=== PATIENT | female | born 1970 | race Two or more races ===

== ENCOUNTER 2018-12-02 13:16 | Emergency (ER) | payer MEDICAID, OTHER ==
[~2018-12-02] VITALS: Ht 162.6 cm; Wt 77.1 kg
[~2018-12-02 13:16] MED LIST: ONDA4TAB11 PO; SULF-10 PO
--- NOTE | 2018-12-02 14:15 | NUR ---
PT BIB DAUGHTER C/O ABDOMINAL PAIN FOR 10 DAYS RADIATING TO LOWER BACK, PT IS AAOX4, NOT IN RESPIRATORY DISTRESS, HOOKED TO MONITOR, KEPT RESTED AND COMFORTABLE, WILL CONTINUE TO MONITOR.
--- NOTE | 2018-12-02 14:41 | NUR ---
SEEN AND EXAMINED BY
--- NOTE | 2018-12-02 14:50 | NUR ---
IV LINE ESTABLISHED BLOOD DRAWNED AND SENT TO LAB.
[2018-12-02 14:53] LABS: APPEARANCE,URINE Clear (CLEAR); BILIRUBIN,URINE Negative (NEGATIVE); BLOOD, URINE Moderate Ery/uL (NEGATIVE); COLOR,URINE Yellow (YELLOW); KETONES,URINE Negative (NEGATIVE); LEUKOCYTE ESTERASE ,URINE Negative (NEGATIVE); NITRITE, URINE Negative (NEGATIVE); PH,URINE 5.5 (5.0-8.0); PROTEIN,URINE Negative (NEGATIVE); UGLUCOSE Negative (NEGATIVE); UROBILINOGEN,URINE 0.2 EU/dL (0.2)
[2018-12-02 14:58] LABS: BASOPHILS # (AUTO) 0.1 /CMM (0.0-0.2); EOSINOPHILS % (AUTO) 3.2 % (0.0-6.0); HEMATOCRIT 28 % (33-45); HEMOGLOBIN 8.7 g/dL (11.5-14.8); LYMPHOCYTES # (AUTO) 1.8 /CMM (0.8-4.8); LYMPHOCYTES % (AUTO) 28.8 % (20.0-44.0); MEAN CORPUSCULAR HGB CONC 31 g/dl (31.0-36.0); MEAN CORPUSCULAR VOLUME 65 fL (82-100); MONOCYTES # (AUTO) 0.5 /CMM (0.1-1.30); MONOCYTES % (AUTO) 7.6 % (2.0-12.0); NEUTROPHILS # (AUTO) 3.7 /CMM (1.8-8.9); NEUTROPHILS % (AUTO) 58.4 % (43.0-81.0); PLATELET COUNT (AUTO) 352 /CMM (150-450); RED BLOOD CELL COUNT(AUTO) 4.29 MIL/uL (4.0-5.2); WHITE BLOOD COUNT (AUTO) 6.3 K/uL (4.3-11.0)
[2018-12-02] MEDS ORDERED: IV NS 0.9% 1,000 ML BAG IV ONE (15:00)
[2018-12-02] MEDS ORDERED: KETOROLAC TROMETHAMINE INJ 30 MG/ML VIAL IV ONE (15:00)
[2018-12-02 15:07] LABS: BACTERIA,URINE Rare /HPF (None Seen); SQUAMOUS EPITHELIAL CELL,UR Few /HPF (None Seen); WBC,URINE NONE SEEN /HPF (0-3)
[2018-12-02 15:29] LABS: ALBUMIN 3.6 g/dL (3.4-5.0); BILIRUBIN,TOTAL 0.2 mg/dL (0.2-1.0); CALCIUM, SERUM 8.9 mg/dL (8.5-10.1); CREATININE 0.8 mg/dL (0.6-1.3); POTASSIUM 4.7 mmol/L (3.5-5.1); TOTAL PROTEIN, SERUM 7.4 g/dL (6.4-8.2)
--- NOTE | 2018-12-02 15:52 | NUR ---
PT IS WHEELED TO CT SCAN VIA [facility].
[2018-12-02 16:41] LABS: EOSINOPHILS % (MANUAL) 3 % (0-4); LYMPHOCYTES % (MANUAL) 30 % (16-48); MONOCYTES % (MANUAL) 5 % (0-11.0); NEUTROPHILS % (MANUAL) 61 (42-76); REACTIVE LYMPHOCYTES 1 % (0-0)
--- NOTE | 2018-12-02 16:41 | NUR ---
DR LYMAN AT BS FOR AN UPDATE AND RE-EVAL.
--- NOTE | 2018-12-02 17:00 | NUR ---
TECH AT BEDSIDE FOR US PELVIC.
--- NOTE | 2018-12-02 18:18 | NUR ---
IV removed. Catheter intact and site benign. Pressure and 4x4 applied to site. No bleeding noted. Patient discharged to home in stable condition. Written and verbal after care instructions given. Patient verbalizes understanding of instruction.
[2018-12-02 18:20] VITALS: BP 112/64
== END 2018-12-02 18:22 | disposition home or self-care (01) ==
LOC: ER 13:16
DX: D64.9 Anemia, unspecified (principal); N92.6 Irregular menstruation, unspecified; R10.84 Generalized abdominal pain
CPT/HCPCS: 36415; 74176; 76856; 80048; 80076; 81001; 83690; 84703; 85025; 99284; J7030; 81000-TC

== ENCOUNTER 2023-12-23 13:08 | Emergency (ER) | payer SELFPAY ==
[~2023-12-23] VITALS: Ht 162.6 cm; Wt 74.8 kg
--- NOTE | 2023-12-23 13:35 | NUR ---
RECEIVED PT 53 YRS FEMALE WALKIN IN WITH SHELIA C/O ABDOMINAL PAIN WITH N/V FOR ONE WEEK GOTING WORE TODAY
[2023-12-23] MEDS ORDERED: MORPHINE SULFATE INJ 4 MG/ML DISP.SYRIN ONE (13:41)
[2023-12-23] MEDS ORDERED: ONDANSETRON HCL/PF 4 MG/2 ML VIAL ONE (13:41)
--- NOTE | 2023-12-23 13:50 | NUR ---
UA sent to lab
--- NOTE | 2023-12-23 13:55 | NUR ---
TO CT SCAN
[2023-12-23] MEDS: IV NS 0.9% 1,000 ML BAG IV ONE (13:58)
[2023-12-23] MEDS: ONDANSETRON HCL/PF 4 MG/2 ML VIAL IVP ONE (13:59)
[2023-12-23] MEDS: MORPHINE SULFATE INJ 2 MG/ML DISP.SYRIN IV ONE (14:02)
[2023-12-23 14:31] LABS: BASOPHILS % (AUTO) 0.9 % (0.0-2.0); EOSINOPHILS # (AUTO) 0.2 K/uL (0.0-0.7); HEMATOCRIT 39 % (33-45); HEMOGLOBIN 13.2 g/dL (11.5-14.8); LYMPHOCYTES # (AUTO) 1.5 K/uL (0.8-4.8); LYMPHOCYTES % (AUTO) 28.3 % (20.0-44.0); MEAN CORPUSCULAR HEMOGLOBIN 30 PG (26.0-33.0); MEAN CORPUSCULAR HGB CONC 34 g/dl (31.0-36.0); MEAN CORPUSCULAR VOLUME 87 fL (82-100); MONOCYTES # (AUTO) 0.5 K/uL (0.1-1.30); MONOCYTES % (AUTO) 9.1 % (2.0-12.0); NEUTROPHILS # (AUTO) 3.1 K/uL (1.8-8.9); NEUTROPHILS % (AUTO) 58.7 % (43.0-81.0); PLATELET COUNT (AUTO) 265 K/uL (150-450); RED BLOOD CELL COUNT(AUTO) 4.48 MIL/uL (4.0-5.2); RED CELL DISTRIBUTION WIDTH 13.1 % (11.5-15.0); WHITE BLOOD COUNT (AUTO) 5.3 K/uL (4.3-11.0)
[2023-12-23] MEDS ORDERED: ONDA4TAB11 PO (14:34)
[2023-12-23] MEDS ORDERED: DICY10CA37 PO (14:34)
[2023-12-23 14:43] LABS: CALCIUM, SERUM 9.7 mg/dL (8.5-10.1); CREATININE 0.9 mg/dL (0.6-1.3); POTASSIUM 3.9 mmol/L (3.5-5.1)
[2023-12-23 14:48] LABS: ALBUMIN 3.8 g/dL (3.4-5.0); BILIRUBIN,DIRECT 0.1 mg/dL (0.0-0.2); BILIRUBIN,TOTAL 0.4 mg/dL (0.2-1.0); TOTAL PROTEIN, SERUM 7.4 g/dL (6.4-8.2)
[2023-12-23] MEDS ORDERED: MAG HYDROX/AL HYDROX/SIMETH 30 ML UDC ONE (15:10)
[2023-12-23] MEDS ORDERED: DICYCLOMINE HCL INJ 20 MG/2 ML AMPUL IM ONE (15:10)
[2023-12-23] MEDS ORDERED: LIDOCAINE VISCOUS 2% UD 15 ML UDC ONE (15:11)
[2023-12-23] MEDS ORDERED: FAMOTIDINE/PF INJ 20 MG/2 ML VIAL IV ONE (15:11)
[2023-12-23] MEDS: DICYCLOMINE HCL INJ 20 MG/2 ML AMPUL IM ONE (15:12)
[2023-12-23] MEDS: FAMOTIDINE (20 MG) 20 MG TABLET PO ONE (15:25)
[2023-12-23] MEDS: MAG HYDROX/AL HYDROX/SIMETH 30 ML UDC PO ONE (15:26)
[2023-12-23] MEDS: LIDOCAINE VISCOUS 2% UD 15 ML UDC MM ONE (15:27)
--- NOTE | 2023-12-23 16:00 | NUR ---
IV removed. Catheter intact and site benign. Pressure and 4x4 applied to site. No bleeding noted.
--- NOTE | 2023-12-23 16:05 | NUR ---
Patient discharged to home in stable condition. Written and verbal after care instructions given. Patient verbalizes understanding of instruction.
[2023-12-23 16:13] VITALS: BP 102/73; TEMP 98.6; O2SAT 96
== END 2023-12-23 16:15 | disposition home or self-care (01) ==
LOC: ER 13:19
DX: R10.84 Generalized abdominal pain (principal); R11.2 Nausea with vomiting, unspecified; R19.7 Diarrhea, unspecified; R10.13 Epigastric pain; Z90.49 Acquired absence of other specified parts of digestive tract
CPT/HCPCS: 99285; 74176; 96374; 96361; 96375; 85025; 80048; 83690; 80076; 36415; 96372; J2270; J3490; J2405; J7030; J0500

== ENCOUNTER 2024-09-05 11:03 | Emergency (ER) | payer OTHER ==
[~2024-09-05] VITALS: Ht 162.6 cm; Wt 74.8 kg
[~2024-09-05 11:03] MED LIST changes: +DICY10CA37 PO
[2024-09-05] MEDS ORDERED: IBUP-1955 PO (13:06)
[2024-09-05] MEDS ORDERED: KETOROLAC TROMETHAMINE 15 MG/ML VIAL ONE (13:15)
[2024-09-05] MEDS: KETOROLAC TROMETHAMINE 15 MG/ML VIAL IM ONE (13:26)
[2024-09-05 13:27] VITALS: BP 140/90; TEMP 98.3; O2SAT 98
== END 2024-09-05 13:27 | disposition home or self-care (01) ==
LOC: ER 11:14
DX: M17.12 Unilateral primary osteoarthritis, left knee (principal); M25.562 Pain in left knee; Z79.899 Other long term (current) drug therapy
CPT/HCPCS: 99285; 93971; 96372; 73564; J1885

== ENCOUNTER 2024-09-26 01:26 | Emergency (ER) | payer OTHER ==
[~2024-09-26] VITALS: Ht 162.6 cm; Wt 74.8 kg
[~2024-09-26 01:26] MED LIST changes: +IBUP-1955 PO
[2024-09-26] MEDS ORDERED: oxyCODONE/APAP (5/325 MG) 1 UDTAB TABLET ONE (04:10)
[2024-09-26] MEDS ORDERED: METHOCARBAMOL (500MG) 500 MG TABLET ONE (04:11)
[2024-09-26] MEDS ORDERED: KETOROLAC TROMETHAMINE INJ 30 MG/ML VIAL ONE (04:11)
[2024-09-26] MEDS: KETOROLAC TROMETHAMINE INJ 30 MG/ML VIAL IM ONE (04:12)
[2024-09-26] MEDS: METHOCARBAMOL (750MG) 750 MG TABLET PO SCH (04:12)
[2024-09-26] MEDS: oxyCODONE/APAP (5/325 MG) 1 UDTAB TABLET PO ONE (04:12)
[2024-09-26] MEDS ORDERED: MORPHINE SULFATE INJ 2 MG/ML DISP.SYRIN ONE (05:17)
[2024-09-26] MEDS: MORPHINE SULFATE INJ 2 MG/ML DISP.SYRIN IM ONE (05:18)
[2024-09-26] MEDS ORDERED: KETO10TA2 PO (05:27)
[2024-09-26 05:46] VITALS: BP 123/77; TEMP 98.2; O2SAT 99
== END 2024-09-26 05:46 | disposition home or self-care (01) ==
LOC: ER 01:38
DX: M25.562 Pain in left knee (principal); Z90.49 Acquired absence of other specified parts of digestive tract
CPT/HCPCS: 99284; 96372; J1885; J2270